=== PATIENT | female | born 1935 | race Caucasian/White ===

== ENCOUNTER → 2023-06-07 | Outpatient (CLI) | payer MEDICARE, SELFPAY ==
[2023-06-07 12:00] LABS: Hematocrit 38.8 % (37-47); Hemoglobin 12.3 g/dL (12.0-15.0); Mean Corp Hgb Conc 31.7 g/dL (32-36); Mean Corpuscular Hgb 32.5 pg (27.0-32.0); Mean Corpuscular Volume 102.4 fL (81-99); Mean Platelet Vol. 11.9 fl (6.2-12.0); Platelet Count 163 K/mm3 (150-450); RBC Distribution Width CV 12.9 % (11.6-14.6); RBC Distribution Width SD 49.1 fl (35.1-43.9); Red Blood Count 3.79 M/mm3 (4.2-5.4); White Blood Count 5.3 K/mm3 (4.4-11.0)
[2023-06-07 12:39] LABS: ALB/GLOB Ratio 1.1 RATIO (0.9-2.4); AST(SGOT) 29 U/L (15-37); Alanine Aminotransfer ALT/SGPT 19 U/L (13-56); Albumin, Serum 3.7 g/dL (3.2-5.0); Alkaline Phosphatase 58 U/L (45-117); Anion Gap 6 (5-15); BUN 16 mg/dL (7-18); BUN/Creat Ratio 19.1 RATIO (10-20); Calcium,Total 9.5 mg/dL (8.5-10.1); Chloride 106 mmol/L (98-107); Creatinine, Serum 0.84 mg/dL (0.55-1.02); EST Glomerular Filtration Rate 69 mL/min (>60); Est Glom Filt Rate - Afr Amer 83 mL/min (>60); Globulin 3.5 g/dL (2.2-4.2); Glucose 90 mg/dL (74-106); Potassium 3.8 mmol/L (3.5-5.1); Protein, Total 7.2 g/dL (6.4-8.2); Sodium Level 137 mmol/L (136-145)
== END | disposition home or self-care (01) ==
PROVIDERS: PCP Family Medicine; Referring Provider Internal Medicine Cardiovascular Disease; Visit Provider Internal Medicine Cardiovascular Disease
DX: R07.9 Chest pain, unspecified (principal); R55 Syncope and collapse
CPT/HCPCS: 36415; 80053; 85027

== ENCOUNTER → 2023-06-14 | Outpatient (CLI) | payer MEDICARE, SELFPAY ==
--- NOTE | 2023-06-14 08:58 | ECHOD_ITS ---
Reason For Study: Syncope Procedure This was a 2D Doppler, Color Flow transthoracic echocardiogram. Exam performed in department. Left Ventricle Normal LV size. Left ventricular systolic function is normal. The estimated ejection fraction is 60 %. Normal diastology for age. No regional wall motion abnormalities noted. Right Ventricle Normal RV size. Normal systolic function. Atria The left and right atria are normal. Mitral Valve Moderate mitral annular calcification extending onto the anterior leaflet. There is no mitral valve stenosis. Mild (1+) mitral valve insufficiency. Tricuspid Valve Normal tricuspid valve. Trivial tricuspid valve insufficiency. Right ventricular systolic pressure estimated to be 22 mmHg. Aortic Valve Trisinus/trileaflet aortic valve. There is no aortic stenosis. Trivial aortic valve insufficiency. Pulmonic Valve The pulmonic valve is not well visualized. Great Vessels Normal aortic root. Pericardium/Pleural No pericardial effusion. MMode/2D Measurements & Calculations LVIDd: 3.6 cm IVSd: 0.82 cm Ao root diam: 3.0 cm LVIDs: 2.2 cm LVPWd: 0.90 cm RVDd: 2.9 cm FS: 37.8 % LAV(MOD-bp): 32.0 ml LVAd ap4: 19.2 cm2 LVAd ap2: 16.5 cm2 LAV(MOD-bp) Indexed: 21.4 ml/m2 LVLd ap4: 6.8 cm LVLd ap2: 6.6 cm LAV(MOD-sp2): 33.0 ml EDV(MOD-sp4): 44.9 ml EDV(MOD-sp2): 35.4 ml LAV(MOD-sp4): 29.3 ml EDV(sp4-el): 46.1 ml EDV(sp2-el): 35.3 ml LVAs ap4: 10.3 cm2 LVAs ap2: 9.9 cm2 LVLs ap4: 5.4 cm LVLs ap2: 5.7 cm ESV(MOD-sp4): 16.2 ml ESV(MOD-sp2): 15.2 ml ESV(sp4-el): 16.8 ml ESV(sp2-el): 14.6 ml EF(MOD-sp4): 64.0 % EF(MOD-sp2): 57.0 % EF(sp4-el): 63.6 % SV(MOD-sp4): 28.7 ml SV(MOD-sp2): 20.2 ml SV(sp4-el): 29.3 ml LA dimension(2D): 2.7 cm LA A4 area: 13.9 cm2 RA A4 area: 10.8 cm2 TAPSE: 2.4 cm Time Measurements MV dec time: 0.18 sec Doppler Measurements & Calculations MV E max rod: 89.4 cm/sec Lat Peak E' Rod: 8.7 cm/sec Med Peak E' Rod: 8.3 cm/sec MV A max rod: 89.4 cm/sec E/E' lat: 10.3 E/E' med: 10.8 MV E/A: 1.0 MV dec slope: 497.8 cm/sec2 Ao V2 max: 105.1 cm/sec LV V1 max: 81.1 cm/sec Ao max P.4 mmHg LV V1 max P.6 mmHg Ao V2 mean: 70.4 cm/sec LV V1 mean P.4 mmHg Ao mean P.3 mmHg LV V1 mean: 55.1 cm/sec Ao V2 VTI: 27.9 cm LV V1 VTI: 20.8 cm AV (velocity ratio): 0.75 PA V2 max: 60.5 cm/sec TR max rod: 217.1 cm/sec TR max P.8 mmHg ECHO/Echo Complete Interpretation Summary The estimated ejection fraction is 60 %. Moderate mitral annular calcification extending onto the anterior leaflet. Mild (1+) mitral valve insufficiency. Trivial tricuspid valve insufficiency. Ordering Physician: Oral Teran Referring Physician: Jaqueline Mitchell M.D. Performed By: Lor Arteaga RDCS
--- NOTE | 2023-06-14 08:58 | CDU_ITS ---
Reason For Study: syncope and collapse Rt. Velocities/BP Lt. Velocities/BP Prox CCA 61.7/12.6 cm/sec. Prox CCA 67.4/14.5 cm/sec. Mid CCA 57.9/14.5 cm/sec. Mid CCA 77.8/19.2 cm/sec. Dist CCA 55.1/9.7 cm/sec. Dist CCA 70.2/18.2 cm/sec. Prox ICA 46.6/12.6 cm/sec. Prox ICA 43.7/9.7 cm/sec. Mid ICA 68.3/19.2 cm/sec. Mid ICA 64.5/19.2 cm/sec. Dist ICA 67.4/20.1 cm/sec. Dist ICA 55.1/20.1 cm/sec. Rt. ICA/CCA = 1.2. Lt. ICA/CCA = .8. Prox ECA 57.9/6.0 cm/sec. Prox ECA 47.5/6.0 cm/sec. Rt. Vert. 46.6/15.4 cm/sec. Lt. Vert. 67.4/12.6 cm/sec. Right Extracranial There is intimal thickening but no significant atherosclerotic plaque noted in the right common carotid artery. There is intimal thickening but no significant atherosclerotic plaque noted in the right internal carotid artery. There is homogeneous, smooth atherosclerotic plaque noted in the right external carotid artery. Antegrade flow is noted in the right vertebral artery. Left Extracranial There is intimal thickening but no significant atherosclerotic plaque noted in the left common carotid artery. There is intimal thickening but no significant atherosclerotic plaque noted in the left internal carotid artery. There is intimal thickening but no significant atherosclerotic plaque noted in the left external carotid artery. Antegrade flow is noted in the left vertebral artery. Procedure Carotid Duplex 85290. This is a Carotid Duplex examination using B-mode, color flow and specral Doppler. The exam was diagnostic. Exam performed in department. VL/Carotid Duplex Ultrasound Interpretation Summary Normal right extracranial internal carotid. Normal left extracranial internal carotid. Patent and antegrade vertebrals bilaterally. Ordering Physician: Oral Teran Performed By: Beny Green RVT
== END | disposition home or self-care (01) ==
LOC: CVS 08:55
PROVIDERS: PCP Family Medicine; Referring Provider Internal Medicine Cardiovascular Disease; Visit Provider Internal Medicine Cardiovascular Disease
DX: R07.9 Chest pain, unspecified (principal); R55 Syncope and collapse
CPT/HCPCS: 93306; 93880

== ENCOUNTER → 2023-06-21 | Outpatient (CLI) | payer MEDICARE, SELFPAY ==
--- NOTE | 2023-06-25 16:12 | STRESSREP_ITS ---
Stress Test Report Exercise myocardial perfusion stress test. 87-year-old woman with a history of syncope Stress protocol: Resting EKG demonstrates normal sinus rhythm with a rate of 65 bpm resting blood pressure is 102/68 mmHg. The patient exercised according to the regular [facility]on protocol for a total duration of 3 minutes attaining a maximum heart rate of 146 bpm which was 108% of maximum predicted heart rate; the maximum workload was 4.6 metabolic equivalents. At rest there were no ST or T wave changes noted to suggest ischemia and at peak exercise upsloping ST changes only were noted which did not meet the criteria for ischemia. No clinical angina was noted the test was terminated due to the target heart rate being achieved/fatigue. The peak bl ood pressure was 138/58 mmHg. Rate-pressure product was 18,900. Myocardial perfusion protocol. 11.3 mCi of technetium 99m sestamibi was injected at rest. The patient exercised according to regular Javon protocol for total duration of 3 minutes and at peak exercise 32.6 mCi of technetium 99m sestamibi was injected stress images were obtained stress and rest images were reconstructed in comparing the short axis vertical long and horizontal long axis. Gated images were also obtained. Perfusion SPECT analysis: Review of the stress images demonstrate normal uptake of tracer noted in all areas of the myocardium. The resting images similarly demonstrate normal uptake of tracer noted in all areas of the myocardium. No areas of reversibility are noted to suggest ischemia no previous infarct was noted. Gated SPECT analysis: The gated ejection fraction is 86%. Conclusion: Normal exercise myocardial perfusion stress test at a low workload Preserved ejection fraction. The low workload may affect sensitivity for detection of ischemia.
== END | disposition home or self-care (01) ==
PROVIDERS: PCP Family Medicine; Referring Provider Internal Medicine Cardiovascular Disease; Visit Provider Internal Medicine Cardiovascular Disease
DX: R55 Syncope and collapse (principal); R07.9 Chest pain, unspecified
CPT/HCPCS: 78452; 93017; A9500; A4216

== ENCOUNTER → 2023-06-28 | Outpatient (CLI) | payer MEDICARE, SELFPAY ==
--- NOTE | 2023-06-28 13:22 | CT_ITS ---
STUDY: CT BRAIN WITH AND WITHOUT CONTRAST REASON FOR EXAM: Female, 87 years old. Syncope and collapse RADIATION DOSAGE (If Supplied By Facility): CTDIvol = ( 47.06 ) mGy, DLP = ( 1674.78 ) mGycm TECHNIQUE: Transaxial CT imaging of the brain was performed pre and post contrast administration. The examination was performed with intravenous administration of IV 50mL Isovue-370. Individualized dose optimization techniques were used for this CT. COMPARISON: None. FINDINGS: Normal soft tissue structures. Normal calvarium. There is mild cerebral atrophy with widening of the extra-axial spaces and ventricular dilatation. There are areas of decreased attenuation within the white matter tracts of the supratentorial brain, consistent with microvascular disease changes. Normal basal ganglia and thalami. Normal brainstem. Normal cerebellum. There is no intracranial hemorrhage. There are no findings of an acute ischemic infarction. Normal visualized paranasal sinuses. CT/Brain/Head W/WO Contrast IMPRESSION: Chronic involutional changes of the brain. Electronically Signed: Francis Velazquez MD at 15:39 EDT ,
== END | disposition home or self-care (01) ==
PROVIDERS: PCP Family Medicine; Referring Provider Internal Medicine Cardiovascular Disease; Visit Provider Internal Medicine Cardiovascular Disease
DX: R55 Syncope and collapse (principal); R07.9 Chest pain, unspecified
CPT/HCPCS: 70470; Q9967

== ENCOUNTER → 2023-10-04 | Outpatient (CLI) | payer MEDICARE, SELFPAY ==
[2023-10-04 12:34] LABS: Cholesterol 281 mg/dL (200); High Density Lipoprotein 90 mg/dL; Magnesium 2.5 mg/dL (1.6-2.6); Triglycerides 64 mg/dL; Very Low Density Lipoprotein 13 mg/dL (5-40)
[2023-10-08 11:08] LABS: Vitamin D 1,25-Dihydroxy 37.2 pg/mL (24.8-81.5)
== END | disposition home or self-care (01) ==
LOC: MTLAB 10:00
PROVIDERS: PCP Family Medicine; Referring Provider Psychiatry & Neurology Neurology; Visit Provider Psychiatry & Neurology Neurology
DX: R00.0 Tachycardia, unspecified (principal); R55 Syncope and collapse; E78.5 Hyperlipidemia, unspecified; E55.9 Vitamin D deficiency, unspecified
CPT/HCPCS: 36415; 80061; 82652; 83735; 84443

== ENCOUNTER → 2023-10-16 | Outpatient (CLI) | payer MEDICARE, SELFPAY | END | disposition home or self-care (01) | PROVIDERS: PCP Family Medicine; Referring Provider Psychiatry & Neurology Neurology; Visit Provider Psychiatry & Neurology Neurology | DX: R55 Syncope and collapse (principal) | CPT/HCPCS: 95819 ==

== ENCOUNTER → 2023-11-14 | Outpatient (CLI) | payer MEDICARE, SELFPAY ==
[2023-11-14 09:34] LABS: Hematocrit 37.2 % (37-47); Hemoglobin 11.7 g/dL (12.0-15.0); Mean Corp Hgb Conc 31.5 g/dL (32-36); Mean Corpuscular Hgb 30.6 pg (27.0-32.0); Mean Corpuscular Volume 97.4 fL (81-99); Mean Platelet Vol. 10.8 fl (6.2-12.0); Platelet Count 195 K/mm3 (150-450); RBC Distribution Width CV 13.2 % (11.6-14.6); RBC Distribution Width SD 46.8 fl (35.1-43.9); Red Blood Count 3.82 M/mm3 (4.2-5.4)
[2023-11-14 09:37] LABS: Anion Gap 1 (5-15); BUN 21 mg/dL (7-18); BUN/Creat Ratio 25.2 RATIO (10-20); Calcium,Total 9.2 mg/dL (8.5-10.1); Chloride 110 mmol/L (98-107); Creatinine, Serum 0.83 mg/dL (0.55-1.02); EST Glomerular Filtration Rate 69 mL/min (>60); Est Glom Filt Rate - Afr Amer 83 mL/min (>60); Glucose 96 mg/dL (74-106); Potassium 4.1 mmol/L (3.5-5.1); Sodium Level 141 mmol/L (136-145)
--- NOTE | 2023-11-14 18:18 | PCM.TILTTABL ---
Staff Staff: Jami Yuan and Sarah Johnson Summary Pre Test Resting HR: 77 Pre Test Resting BP: 92/55 Minimum Test HR: 75 Maximum Test HR: 127 Minimum Test BP: 52/30 Maximum Test BP: 112/55 Reason for Test Termination: Syncope Physician Tilt Table Report Patient's Physicians Primary Care Physician: Jaqueline Mitchell Indications/Diagnosis: Syncope Procedure Comments: Patient was brought to the noninvasive lab in the postabsorptive nonsedated state. Informed consent was obtained. Initial EKG was obtained which demonstrated sinus rhythm with a rate of 77 bpm initial blood pressure was 92/55 mmHg. The patient was then put in the 70 degree head upright tilt position. Continuous EKG monitoring was performed. The patient maintained an adequate heart rate between 83 bpm and 92 bpm. Blood pressures ranged between 95 to millimeters of mercury systolic and 109 mmHg systolic. After the requisite. The patient was then put back in the supine position and administered 0.4 mg of sublingual nitroglycerin. Patient was then put in the head upright tilt position. Initial heart rate was 97 bpm with a blood pressure of 102/62 mmHg. The heart rate then went up to 127 bpm with blood pressure dropping to 93/49 and then subsequently patient became clammy and responsive drop blood pressure to 52 mmHg with heart rate slowly declining from 101 bpm to approximately 87 bpm in sinus rhythm and then sinus bradycardia. Patient was put back in the recumbent position given IV fluids and patient recovered. Summary: Tilt table test with mixed response likely orthostatic hypotension followed by vagal component.
[2023-11-14 18:24] VITALS: BP 112/55; BP 52/30; BP 92/55
== END | disposition home or self-care (01) ==
PROVIDERS: Internal Medicine Cardiovascular Disease; PCP Family Medicine; Visit Provider Internal Medicine Cardiovascular Disease
DX: R55 Syncope and collapse (principal); I48.91 Unspecified atrial fibrillation; I48.92 Unspecified atrial flutter; G90.A Postural orthostatic tachycardia syndrome [POTS]; I45.5 Other specified heart block; R00.0 Tachycardia, unspecified
CPT/HCPCS: 36415; 80048; 85027; 93225; 93226; 93660; J7040; A4216

== ENCOUNTER → 2024-07-29 | Outpatient (CLI) | payer MEDICARE, SELFPAY ==
[2024-07-29 11:37] LABS: AST(SGOT) 27 U/L (15-37); Alanine Aminotransfer ALT/SGPT 18 U/L (13-56); Albumin, Serum 3.6 g/dL (3.2-5.0); Alkaline Phosphatase 45 U/L (45-117); Bilirubin, Direct 0.14 mg/dL (0.00-0.30); Cholesterol 171 mg/dL (200); Globulin 3.1 g/dL (2.2-4.2); High Density Lipoprotein 84 mg/dL; Protein, Total 6.7 g/dL (6.4-8.2); Triglycerides 41 mg/dL; Very Low Density Lipoprotein 8 mg/dL (5-40)
== END | disposition home or self-care (01) ==
LOC: MFPLAB 09:03
PROVIDERS: PCP Family Medicine; Visit Provider Psychiatry & Neurology Neurology
DX: E78.5 Hyperlipidemia, unspecified (principal); R07.9 Chest pain, unspecified
CPT/HCPCS: 36415; 80061; 80076

== ENCOUNTER → 2025-05-07 | Outpatient (CLI) | payer MEDICARE, SELFPAY ==
[2025-05-07 10:45] LABS: Hematocrit 35.3 % (37-47); Hemoglobin 11.5 g/dL (12.0-15.0); Mean Corp Hgb Conc 32.6 g/dL (32-36); Mean Corpuscular Hgb 31.4 pg (27.0-32.0); Mean Corpuscular Volume 96.4 fL (81-99); Mean Platelet Vol. 12.3 fl (6.2-12.0); Platelet Count 179 K/mm3 (150-450); RBC Distribution Width CV 12.9 % (11.6-14.6); RBC Distribution Width SD 45.9 fl (35.1-43.9); Red Blood Count 3.66 M/mm3 (4.2-5.4); White Blood Count 4.9 K/mm3 (4.4-11.0)
[2025-05-07 11:12] LABS: ALB/GLOB Ratio 1.6 RATIO (0.9-2.4); AST(SGOT) 28 U/L (<=31); Alanine Aminotransfer ALT/SGPT 13 U/L (<=34); Albumin, Serum 4.2 g/dL (3.4-4.8); Alkaline Phosphatase 49 U/L (35-104); Anion Gap 10 (5-15); BUN 20 mg/dL (4-19); BUN/Creat Ratio 24.2 RATIO (10-20); Calcium,Total 9.4 mg/dL (7.6-11.0); Carbon Dioxide 25.8 mmol/L (21.0-32.0); Chloride 105 mmol/L (98-108); Cholesterol 224 mg/dL (<=200); Creatinine, Serum 0.84 mg/dL (0.70-1.20); EST Glomerular Filtration Rate 67 (>60); Globulin 2.6 g/dL (2.2-4.2); Glucose 98 mg/dL (70-99); High Density Lipoprotein 93 mg/dL; Low Density Lipoprotein Calc. 122 mg/dL; Potassium 4.1 mmol/L (3.3-5.1); Protein, Total 6.7 g/dL (5.9-8.4); Sodium Level 141 mmol/L (133-145); Total Bilirubin 0.31 mg/dL (0.00-1.30); Triglycerides 45 mg/dL; Very Low Density Lipoprotein 9 mg/dL (5-40); cholesterol:hdl ratio screen 2.41
--- OUTSIDE RECORDS SUMMARY | 2025-05-07 16:08 | XMS RPT_ITS | CCD ---
Author Organization [facility] Care Team Providers Care Client Services Analyst Name Role Phone Dr. Jaqueline Mitchell Primary Care Provider Dr. Jaqueline Mitchell Referring Provider Jeffry, Dr. Mixon Attending Provider Dr. Juan C Betts Attending Provider Jeffry, Dr. Mixon Referring Provider Xavi SIFUENTES, JAVIER Conroy Attending Provider Jeffry, Dr. Mixon Other Provider Dr. Julio C Driver Attending Provider [phone] Jaqueline Mitchell Primary Care Provider Jeffry, Dr. Mixon Referring Provider Dr. Oral Teran Other Provider Dr. Julio C Driver Attending Provider [phone] Jaqueline Mitchell Referring Provider Jeffry, Dr. Mixon Attending Provider Dr. Regis Butler Attending Provider Dr. Jaqueline Mitchell Primary Care Provider Dr. Julio C Driver Attending Provider [phone] Julio C Driver Other Provider Jeffry, Dr. Mixon Other Provider Regis Butler Attending Unavailable Regis Butler Referring Unavailable Jaqueline Mitchell Primary Care Unavailable Regis Butler Attending Unavailable Jolliff, Jaqueline S Primary Care Unavailable Baddour, Regis Referring Unavailable Baddour, Regis Attending Unavailable Jolliff, Jaqueline S Primary Care Unavailable Baddour, Regis Attending Unavailable Baddour, Regis Referring Unavailable Jolliff, Jaqueline S Primary Care Unavailable Jeffry, Oral Consulting Unavailable Jolliff, Jaqueline S Primary Care Unavailable Neisha, Julio C Attending Unavailable Jolliff, Jaqueline S Primary Care Unavailable Jolliff, Jaqueline S Referring Unavailable Marycarmen Hurley Attending Unavailable Baddour, Regis Referring Unavailable Jeffry, Oral Attending Unavailable Jolliff, Jaqueline S Primary Care Unavailable Jeffry, Oral Consulting Unavailable Jolliff, Jaqueline S Primary Care Unavailable Neisha, Dickson Attending Unavailable Neisha, Julio C Consulting Unavailable Baddour, Regis Attending Unavailable Jolliff, Jaqueline S Referring Unavailable Jolliff, Jaqueline S Primary Care Unavailable Baddour, Regis Attending Unavailable Jolliff, Jaqueline S Primary Care Unavailable Jolliff, Jaqueline S Referring Unavailable Baddour, Regis Attending Unavailable Baddour, Regis Referring Unavailable Jolliff, Jaqueline S Primary Care Unavailable Baddour, Regis Attending Unavailable Jolliff, Jaqueline S Primary Care Unavailable Jolliff, Jaqueline S Referring Unavailable Baddour, Regis Attending Unavailable Jolliff, Jaqueline S Primary Care Unavailable Jolliff, Jaqueline S Referring Unavailable Jeffry, Oral Attending Unavailable Jolliff, Jaqueline S Referring Unavailable Jolliff, Jaqueline S Primary Care Unavailable Ciciiff Dr. Jaqueline KEEN Primary Care Provider Dr. Jaqueline Mitchell MD Referring Provider [phone] Dr. Regis Butler MD Attending Provider Medications Current Medications Medication Drug Class(es) Dates Sig (Normalized) Sig (Original) atorvastatin 20 mg oral tablet (3 sources) HMG-CoA Reductase Inhibitor Start: 02-04-2024 End: 05-07-2025 take 1 tablet by mouth once daily Atorvastatin 20 mg tablet Active 20 mg PO DAILY 90 May 07, 2025 8:51am fludrocortisone acetate 0.1 mg oral tablet (5 sources) Start: 12-18-2023 End: 05-07-2025 take 1 tablet by mouth in the morning Fludrocortisone 0.1 mg tablet Active 0.1 mg .ROUTE .COMPLEX 60 May 07, 2025 8:51am Take 1 tablet orally in the morning 4 days/week (Sunday, Sunday, Sunday, and Sunday). Start: 12-03-2023 End: 12-18-2023 take 1 tablet by mouth in the morning Fludrocortisone 0.1 mg tablet Discontinued 0.1 mg .ROUTE .COMPLEX 15 December 03, 2023 1:00am December 18, 2023 8:54pm Take 1 tablet orally in the morning 3 days/week (Sunday, Sunday, and Sunday). Drifting 6-Flz-Uwh-Fish Oil (Fi sh Oil) 900-1,400 mg capsule,delayed release(DR/EC) (5 sources) Start: 06-06-2023 Drifting 3-Dha-Ep a-Fish Oil (Fish Oil) 900-1,400 mg capsule,delayed release(DR/EC) Active 1 NMA PO DAILY June 06, 2023 12:00am Start: 06-06-2023 take 900-1400 mg by mouth once daily Drifting 1-Zgg-Amb-Fish Oil (Fish Oil) 900-1,400 mg capsule,delayed release(DR/EC) Active 1 CAP PO DAILY June 05, 2023 11:00pm Start: 06-06-2023 take 900-1400 mg by mouth once daily Drifting 8-Fmj-Kev-Fish Oil (Fish Oil) 900-1,400 mg capsule,delayed release(DR/EC) Active 1 CAP PO DAILY June 06, 2023 12:00am Completed/Discontinued Medications Medication Drug Class(es) Dates Sig (Normalized) Sig (Original) acetaminophen 325 mg / oxyCODONE hydrochloride 5 mg oral tablet (5 sources) Opioid Agonist Start: 12-13-2014 End: 06-06-2023 Oxycodone-Acetamino phen 1 TABLET tablet Discontinued 1 - 2 {tbl} PO EVERY 4 HOURS NEEDED as needed for Pain December 13, 2014 1:00am June 06, 2023 7:09pm Start: 12-13-2014 End: 06-06-2023 take 1 tablet by mouth every four hours as needed Oxycodone-Acetaminophen Discontinued 1 - 2 TABLET PO EVERY 4 HOURS NEEDED December 13, 2014 12:00am June 06, 2023 6:09pm 24 hr metoprolol succinate 25 mg extended release oral tablet (2 sources) beta-Adrenergic Girish Start: 11-07-2023 End: 11-12-2023 take 1 tablet by mouth once daily Metoprolol Succinate 25 mg tablet extended release 24 hr Discontinued 25 mg PO DAILY November 07, 2023 1:00am November 12, 2023 10:31am Problems Active Problems Problem Classification Problem Date Documented Da te Episodic/Chronic Cardiac dysrhythmias (10 sources) Postural orthostatic tachycardia syndrome ; Translations: [Postural orthostatic tachycardia syndrome] Onset: 11-28-2023 10-05-2023 Chronic Cardiac dysrhythmias (5 sources) Tachycardia; Translations: [Tachycardia, unspecified] Onset: 10-09-2023 10-05-2023 Episodic Conduction disorders (2 sources) Sinus node dysfunction; Translations: [Other specified heart block] Onset: 11-28-2023 11-12-2023 Chronic Disorders of lipid metabolism (5 sources) Hyperlipidemia; Translations: [Hyperlipidemia, unspecified] Onset: 08-18-2024 10-04-2023 Chronic Heart valve disorders (5 sources) Mitral valve regurgitation; Translations: [Nonrheumatic mitral (valve) insufficiency] 08-29-2023 Chronic Nonspecific chest pain (6 sources) Chest pain; Translations: [Chest pain, unspecified] Onset: 02-04-2024 06-06-2023 Episodic Nutritional deficiencies (6 sources) Vitamin D deficiency; Translations: [Vitamin D deficiency, unspecified] Onset: 10-04-2023 10-04-2023 Chronic Other circulatory disease (2 sources) Orthostatic hypotension; Translations: [Orthostatic hypotension] 08-07-2024 Episodic Syncope (14 sources) Syncope and collapse; Translations: [Syncope and collapse] Onset: 11-28-2023 06-07-2023 Episodic Past or Other Problems Problem Classification Problem Date Documented Da te Episodic/Chronic Other circulatory disease (2 sources) Postural orthostatic tachycardia syndrome ; Translations: [Postural orthostatic tachycardia syndrome [POTS]] Onset: 11-28-2023 Episodic Results Test Name Value Interpretation Reference Range Facility Neurology Visit Reporton Neurology Visit Report [facility] [address] [place] [address], [address] [place] [address] OFFICE VISIT Date of Service: 08/07/24 MR#: [id number] Acct: [id number] Name: LEONORA BAEZ Rep #: [id number] : 1935 Provider: Dr. Regis baugh MD Age/Sex: 88/F Location: [facility] Status: Signed HPI HPI Details: Interim History: Leonora returns for follow-up visit. She has a history of polycystic kidney disease. Around January 2023, after entering her car and beginning to drive she had an episode of acute loss of consciousness that lasted several seconds. She did not have any preceding numbness, weakness, vision change, headache, hearing loss, lightheadedness, dizziness, chest pain or shortness of breath. She did not exhibit any tongue biting or urinary incontinence. Upon regaining consciousness, she was fully awake and alert. She did not seek medical attention at that time. Around March 2023, she had another similar episode of loss of consciousness that occurred while standing. This episode was witnessed. She did not exhibit any limb shaking. Her loss of consciousness lasted several seconds. She was evaluated by her primary care provider following this episode. She had had some vague sinus symptoms at that time for which she was treated. In April 2023, she had a third episode of similar loss of consciousness while walking outside. She fell and struck her face. She did not have any postictal confusion or lethargy, numbness, weakness, vision change, lightheadedness, dizziness, chest pain, or shortness of breath associated with the second and third episodes. She did not have any tongue biting or urinary incontinence with the second or third episodes. She was evaluated by a boiler washer following her third episode. Her evaluation included an EKG, cardiac echo, carotid ultrasound and stress test and no significant pathology to account for her symptoms was identified. A head CT revealed moderate age-related diffuse cerebral atrophy and moderate bilateral periventricular and subcortical white matter chronic small vessel ischemic disease. She previously reported having episodes of positional lightheadedness several times per day however she did not experience lightheadedness at the time of occurrence of any of the syncopal episodes above. A tilt table test was positive for orthostatic hypotension. Fludrocortisone was initiated. She currently takes fludrocortisone 0.1 mg in the morning 4 days/week (Sunday, Sunday, Sunday, Sunday) and has used compression stockings and she has had only 2 momentary episodes of lightheadedness since her last visit in January 2024. She has had no further syncopal episodes other than those described above. Laboratory studies from years past reveal vitamin D insufficiency and hyperlipidemia. Her last vitamin D level was normal. She now takes atorvastatin and is tolerating this well. Her last lipid profile (July 2024) was normal. Physical Exam: Neuro: The patient is awake and alert and responds appropriately; speech is fluent Neck: No bruits Heart: Regular rhythm and rate Supplemental Info Vitamin D, lipid profile (03/31/2014): Vitamin D 28 (insufficiency range), triglycerides 76 (normal), cholesterol 262 (high), LDL 169 (high), VLDL 15 (normal), HDL 78 (normal) CBC, CMP (06/07/2023): MCV 102.4 (high) Carotid ultrasound (06/14/2023): Normal right extracranial internal carotid. Normal left extracranial internal carotid. Patent and antegrade vertebrals bilaterally. Cardiac echo (06/14/2023): The estimated ejection fraction is 60 %. Moderate mitral annular calcification extending onto the anterior leaflet. Mild (1+) mitral valve insufficiency. Trivial tricuspid valve insufficiency. Head CT (06/28/2023): FINDINGS: Normal soft tissue structures. Normal calvarium. There is mild cerebral atrophy with widening of the extra-axial spaces and ventricular dilatation. There are areas of decreased attenuation within the white matter tracts of the supratentorial brain, consistent with microvascular disease changes. Normal basal ganglia and thalami. Normal brainstem. Normal cerebellum. There is no intracranial hemorrhage. There are no findings of an acute ischemic infarction. Normal visualized paranasal sinuses. IMPRESSION: Chronic involutional changes of the brain. These images were reviewed on 10/04/2023. Magnesium, lipid profile, TSH, vitamin D (10/04/2023): Cholesterol 281 (high), LDL 178 (high), triglycerides 64 (normal), VLDL 13 (normal), HDL 90 (normal) EEG (10/16/2023): Description: During the waking recording the posterior rhythm was characterized by well-sustained, well-modulated symmetrical 9 Hz alpha rhythm that attenuated well with eye opening. Low voltage beta activity was seen anteriorly. A mixture of alpha and theta activity was seen in the central and temporal regions bilaterally. Patient drowses with (more content not included)... Normal [facility] Lipid Profileon 07-29-2024 Cholesterol [Mass/Vol] 171 mg/dL Normal 200 [facility] Comment on above: Result Comment: <200 mg/dL Desirable 200-240 mg/dL Borderline >240 mg/dL High Risk Performed By: #### L 500.4100, L500.3400 #### [facility] [address] [place], [address] Cholesterol in HDL [Mass/Vol] 84 mg/dL Normal [facility] Comment on above: Result Comment: The drugs N-Acetylcysteine and Metamizole may falsely depress this assay. Reference Range HDL <40 mg/dL Low HDL Cholesterol HDL >or= 60 mg/dL High HDL Cholesterol Performed By: #### L 500.4100, L500.3400 #### [facility] [address] [place], [address] Cholesterol in LDL [Mass/Vol] 79 mg/dL Normal 0-130 [facility] Comment on above: Performed By: #### L 500.4100, L500.3400 #### [facility] [address] [place], [address] Cholesterol in VLDL [Mass/Vol] 8 mg/dL Normal 5-40 [facility] Comment on above: Performed By: #### L 500.4100, L500.3400 #### [facility] [address] [place], [address] Triglyceride [Mass/Vol] 41 mg/dL Normal [facility] Comment on above: Result Comment: The drugs N-Acetylcysteine and Metamizole may falsely depress this assay. Serum Triglycerides Reference Interval Normal <150 mg/dL Borderline high 150 - 199 mg/dL High 200 - 499 mg/dL Very High > or = 500 mg/dL Performed By: #### L 500.4100, L500.3400 #### [facility] [address] [place], [address] Liver Profileon 07-29-2024 Albumin [Mass/Vol] 3.6 g/dL Normal 3.2-5.0 [facility] Comment on above: Performed By: #### L 500.4100, L500.3400 #### [facility] [address] [place], [address] ALK P 45 U/L Normal 45-117 [facility] Comment on above: Performed By: #### L 500.4100, L500.3400 #### [facility] [address] [place], [address] ALT [Catalytic activity/Vol] 18 U/L Normal 13-56 [facility] Comment on above: Performed By: #### L 500.4100, L500.3400 #### [facility] [address] [place], [address] AST [Catalytic activity/Vol] 27 U/L Normal 15-37 [facility] Comment on above: Performed By: #### L 500.4100, L500.3400 #### [facility] [address] [place], [address] Bilirubin [Mass/Vol] 0.60 mg/dL Normal 0.20-1.00 [facility] Comment on above: Result Comment: For patients on eltrombopag therapy, use of Dimension [place] TBIL is not recommended. Performed By: #### L 500.4100, L500.3400 #### [facility] [address] [place], [address] Bilirubin.direct [Mass/Vol] 0.14 mg/dL Normal 0.00-0.30 [facility] Comment on above: Performed By: #### L 500.4100, L500.3400 #### [facility] [address] [place], [address] Globulin (S) [Mass/Vol] 3.1 g/dL Normal 2.2-4.2 [facility] Comment on above: Performed By: #### L 500.4100, L500.3400 #### [facility] [address] [place], [place], [address] T PROT 6.7 g/dL Normal 6.4-8.2 [facility] Comment on above: Performed By: #### L 500.4100, L500.3400 #### [facility] [address] [place], [place], [address] Neurology Visit Reporton Neurology Visit Report [facility] [address] [facility] [address] [facility], [address] [place], [place] [address] OFFICE VISIT Date of Service: 02/04/24 MR#: [id number] Acct: [id number] Name: LEONORA BAEZ Rep #: [id number] : 1935 Provider: Dr. Regis baugh MD Age/Sex: 88/F Location: [facility] Status: Signed Intake Vital Signs 10/04/23 08:59 01/08/24 08:15 02/04/24 08:19 02/04/24 09:29 02/04/24 09:30 Height 5 ft 2 in 52 ft Weight: 114 lb 8 oz BP 120/70 110/60 98/60 Blood Pressure Location Lt brachial Lt brachial Lt brachial Position Sitting Sitting Standing Respiration 14 Pulse 87 77 83 Pulse Source Monitor Temp 97.8 F Temp Source Temporal Pulse Oximetry (%) 97 Oxygen Delivery Method room air Intake Visit Reasons: 4 M FU Accompanied by: Self Allergies No Known Allergies Allergy (Verified 02/04/24 08:20) [facility] Medical History (Updated 02/04/24 @ 09:[address] Regis Butler MD) Chest pain Polycystic kidney disease Syncope and collapse Surgical History Hx of cataract removal with insertion of prosthetic lens Hx of dilation and curettage Family History Father CVA (cerebral vascular accident) Mother Dementia Daughter Kidney disease Social History (Updated 08/29/23 @ 13:13 by Sary Benitez RN) Smoking Status: Never smoker alcohol intake: never substance use type: does not use caffeine: Yes Type: coffee Number of servings: 2 HPI HPI Details: Interim History: Leonora returns for follow-up visit. She has a history of polycystic kidney disease. Around January 2023, after entering her car and beginning to drive she had an episode of acute loss of consciousness that lasted several seconds. She did not have any preceding numbness, weakness, vision change, headache, hearing loss, lightheadedness, dizziness, chest pain or shortness of breath. She did not exhibit any tongue biting or urinary incontinence. Upon regaining consciousness, she was fully awake and alert. She did not seek medical attention at that time. Around March 2023, she had another similar episode of loss of consciousness that occurred while standing. This episode was witnessed. She did not exhibit any limb shaking. Her loss of consciousness lasted several seconds. She was evaluated by her primary care provider following this episode. She had had some vague sinus symptoms at that time for which she was treated. In April 2023, she had a third episode of similar loss of consciousness while walking outside. She fell and struck her face. She did not have any postictal confusion or lethargy, numbness, weakness, vision change, lightheadedness, dizziness, chest pain, or shortness of breath associated with the second and third episodes. She did not have any tongue biting or urinary incontinence with the second or third episodes. She was evaluated by a boiler washer following her third episode. Her evaluation included an EKG, cardiac echo, carotid ultrasound and stress test and no significant pathology to account for her symptoms was identified. A head CT with and without contrast revealed moderate age-related diffuse cerebral atrophy and moderate bilateral periventricular and subcortical white matter chronic small vessel ischemic disease. She reported having episodes of positional lightheadedness several times per day however she did not experience lightheadedness at the time of occurrence of any of the syncopal episodes above. A tilt table test was positive for orthostatic hypotension. The patient was prescribed fludrocortisone. She currently takes fludrocortisone 0.1 mg in the morning 4 days/week (Sunday, Sunday, Sunday, Sunday) and uses compression stockings and her lightheadedness has resolved. She has had no further syncopal episodes than those described above. She does not have any history of LAMP WIRER infection, concussion or significant history. Laboratory studies from years past reveal vitamin D insufficiency and hyperlipidemia. Her last vitamin D level was normal. Physical Exam: Neuro: The patient is awake and alert and responds appropriately; speech is fluent Neck: No bruits Heart: Regular rhythm and rate Supplemental Info Vitamin D, lipid profile (03/31/2014): Vitamin D 28 (insufficiency range), triglycerides 76 (normal), cholesterol 262 (high), LDL 169 (high), VLDL 15 (normal), HDL 78 (normal) CBC, CMP (06/07/2023): MCV 102.4 (high) Carotid ultrasound (06/14/2023): Normal right extracranial internal carotid. Normal left extracranial internal carotid. Patent and antegrade vertebrals bilaterally. Cardiac echo (06/14/2023): The estimated ejection fraction is 60 %. Moderate mitral annular calcification extending onto the anterior leaflet. Mild (1+) mitral valve insufficiency. Trivial (more content not included)... Normal [facility] Office Visit Reporton 2023 Office Visit Report [facility] [address] [address] OFFICE VISIT Date of Service: 01/08/24 MR#: [id number] Acct: [id number] Patient: LEONORA BAEZ Rep #: [id number] : 1935 Provider: Dr. Regis baugh MD Age/Sex: 88/F Location: [facility] Status: Signed Intake Vital Signs 10/04/23 08:59 01/08/24 08:15 01/08/24 08:16 01/08/24 08:17 Height 5 ft 2 in 52 ft Weight: 115 lb 3 oz BMI 0.1 BP 120/80 122/62 H 120/64 Blood Pressure Location Rt brachial Rt brachial Rt brachial Position Supine Sitting Standing Respiration 17 Pulse 69 66 77 Pulse Source Monitor Monitor Monitor Temp 97.8 F Temp Source Temporal Pulse Oximetry (%) 95 Oxygen Delivery Method room air Intake Visit Reasons: orthostatic blood pressure check Allergies No Known Allergies Allergy (Verified 02/04/24 08:20) Nursing Note Orthostatic's taken today: Dr. Butler looked over results, He wants patient to continue her Fludrocortisone 0.1 mg by mouth every Sun-Sun-Sun and Sat. She can resume driving but ONLY in the daylight, for short trips, only in familiar areas and when she is not tired. Patient understood orders, she repeated the orders for driving and medication days. Patient is scheduled for her next office visit on February 04, 2024. Quality Reporting Tobacco Screening ([facility] 138) Smoking Status: Never smoker Assessment and Plan Assessment and Plan (1) Postural orthostatic tachycardia syndrome: Status: Acute 02/04/24 0904 Date Regis Butler MD [facility] Signature: Date (if applicable) CC: Normal [facility] Office Visit Reporton 2023 Office Visit Report [facility] [address] [place] [address] OFFICE VISIT Date of Service: 12/18/23 MR#: [id number] Acct: [id number] Patient: LEONORA BAEZ Rep #: [id number] : 1935 Provider: Dr. Regis baugh MD Age/Sex: 88/F Location: [facility] Status: Signed with Addenda ADDENDUM by Dr. Regis Butler MD on 02/04/24 at 0859 Addendum Addendum (02/04/2024): The patient's dose of fludrocortisone 0.1 mg was increased to 1 tablet 4 days/week to be taken in the morning (Sunday, Sunday, Sunday, Sunday) on 12/18/2023. 02/04/24 0859 Date Regis Butler MD cc: * Signed Intake Vital Signs 10/04/23 08:59 12/18/23 08:32 12/18/23 08:32 12/18/23 08:33 Height 5 ft 2 in BP 103/66 103/62 98/68 Blood Pressure Location Lt brachial Lt brachial Lt brachial Position Sitting Supine Standing Intake Visit Reasons: ORTHOSTATIC BLOOD PRESSURE Allergies No Known Allergies Allergy (Verified 10/04/23 09:01) 12/18/231956 Date Regis De La Garza Signature: Date (if applicable) CC: Normal [facility] Basic Metabolic Profile (BMP )on 11-14-2023 BUN/CRE 25.2 RATIO High 09-14 [facility] Comment on above: Order Comment: for t ilt table study Performed By: #### L 100.0500, L500.2500 #### [facility] [address] [place], [address] CA,Total 9.2 mg/dL Normal 8.5-10.1 [facility] Comment on above: Order Comment: for t ilt table study Performed By: #### L 100.0500, L500.2500 #### [facility] [address] [place], [address] Chloride [Moles/Vol] 110 mmol/L High 98-107 [facility] Comment on above: Order Comment: for t ilt table study Performed By: #### L 100.0500, L500.2500 #### [facility] [address] [place], [address] CO2 [Moles/Vol] 30.0 mmol/L Normal 21.0-32.0 [facility] Comment on above: Order Comment: for t ilt table study Performed By: #### L 100.0500, L500.2500 #### [facility] [address] [place], [address] Creatinine [Mass/Vol] 0.83 mg/dL Normal 0.55-1.02 [facility] Comment on above: Order Comment: for t ilt table study Result Comment: The validity of the calculated GFR GFRAA in patients over 70 years has not been determined. Clinical correlation is essential. Performed By: #### L 100.0500, L500.2500 #### [facility] [address] [place], [address] EST GFR - AA 83 mL/min Normal >60 [facility] Comment on above: Order Comment: for t ilt table study Result Comment: Afri can [place] GFR Calc Performed By: #### L 100.0500, L500.2500 #### [facility] [address] [place], [address] GAP 1 Low 5-15 [facility] Comment on above: Order Comment: for t ilt table study Performed By: #### L 100.0500, L500.2500 #### [facility] [address] [place], [address] GFR/1.73 sq M.predicted among non-blacks MDRD (S/P/Bld) [Vol rate/Area] 69 mL/min/{1.73_m2} Normal >60 [facility] Comment on above: Order Comment: for t ilt table study Result Comment: Non- GFR Calc Performed By: #### L 100.0500, L500.2500 #### [facility] [address] [place], [address] Glucose [Mass/Vol] 96 mg/dL Normal 74-106 [facility] Comment on above: Order Comment: for t ilt table study Performed By: #### L 100.0500, L500.2500 #### [facility] [address] [place], [address] Potassium [Moles/Vol] 4.1 mmol/L Normal 3.5-5.1 [facility] Comment on above: Order Comment: for t ilt table study Performed By: #### L 100.0500, L500.2500 #### [facility] [address] [place], [address] Sodium [Moles/Vol] 141 mmol/L Normal 136-145 [facility] Comment on above: Order Comment: for t ilt table study Performed By: #### L 100.0500, L500.2500 #### [facility] [address] [place], [address] Urea nitrogen [Mass/Vol] 21 mg/dL High 7-18 [facility] Comment on above: Order Comment: for t gat table study Performed By: #### L 100.0500, L500.2500 #### [facility] [address] [place], [address] Basophil percentageOrdered B y: Oral Teran on 11-14-2023 Chloride [Moles/Vol] 110 mmol/L 98-107 [facility] Glucose [Mass/Vol] 96 mg/dL 74-106 [facility] Potassium [Moles/Vol] 4.1 mmol/L 3.5-5.1 [facility] Sodium [Moles/Vol] 141 mmol/L 136-145 [facility] WBC (Bld) [#/Vol] 5.0 10*3/uL 4.4-11.0 [facility] Blood erythrocytes count (nu mber/volume)Ordered By: Oral Teran on 11-14-2023 RBC (Bld) [#/Vol] 3.82 10*6/uL 4.2-5.4 [facility] Blood hemoglobin measurement (mass/volume)Ordered By: Oral Teran on 11-14-2023 Hemoglobin (Bld) [Mass/Vol] 11.7 g/dL 12.0-15.0 [facility] Blood platelet mean volumeOr dered By: Oral Teran on 11-14-2023 Platelet mean volume (Bld) [Entitic vol] 10.8 fL 6.2-12.0 [facility] CBC-Complete Blood Cnt No Di ffon 11-14-2023 Erythrocyte distribution width (RBC) [Ratio] 13.2 % Normal 11.6-14.6 [facility] Comment on above: Performed By: #### L 100.0500, L500.2500 #### [facility] [address] [place], [address] Hematocrit (Bld) [Volume fraction] 37.2 % Normal 37-47 [facility] Comment on above: Performed By: #### L 100.0500, L500.2500 #### [facility] [address] [place], [address] Hemoglobin (Bld) [Mass/Vol] 11.7 g/dL Low 12.0-15.0 [facility] Comment on above: Performed By: #### L 100.0500, L500.2500 #### [facility] [address] [place], [address] MCH (RBC) [Entitic mass] 30.6 pg Normal 27.0-32.0 [facility] Comment on above: Performed By: #### L 100.0500, L500.2500 #### [facility] [address] [place], [address] MCHC (RBC) [Mass/Vol] 31.5 g/dL Low 32-36 [facility] Comment on above: Performed By: #### L 100.0500, L500.2500 #### [facility] [address] [place], [address] MCV (RBC) [Entitic vol] 97.4 fL Normal 81-99 [facility] Comment on above: Performed By: #### L 100.0500, L500.2500 #### [facility] [address] [place], [address] Platelet mean volume (Bld) [Entitic vol] 10.8 fL Normal 6.2-12.0 [facility] Comment on above: Performed By: #### L 100.0500, L500.2500 #### [facility] [address] [place], [address] Platelets (Bld) [#/Vol] 195 10*3/uL Normal 150-450 [facility] Comment on above: Performed By: #### L 100.0500, L500.2500 #### [facility] [address] [place], [address] RBC (Bld) [#/Vol] 3.82 10*6/uL Low 4.2-5.4 [facility] Comment on above: Performed By: #### L 100.0500, L500.2500 #### [facility] [address] [place], [address] RDW SD 46.8 fl High 35.1-43.9 [facility] Comment on above: Performed By: #### L 100.0500, L500.2500 #### [facility] [address] [place], [address] WBC (Bld) [#/Vol] 5.0 10*3/uL Normal 4.4-11.0 [facility] Comment on above: Performed By: #### L 100.0500, L500.2500 #### [facility] [address] [place], [address] Determination of erythrocyte mean corpuscular volume (MCV)Ordered By: Oral Teran on 11-14-2023 MCV (RBC) [Entitic vol] 97.4 fL 81-99 [facility] Hematocrit Auto (Bld) [Volum e fraction]Ordered By: Oral Teran on 11-14-2023 Hematocrit (Bld) [Volume fraction] 37.2 % 37-47 [facility] - Chemistry and C hemistry - challengeOrdered By: Oral Teran on 11-14-2023 CO2 [Moles/Vol] 30.0 mmol/L 21.0-32.0 [facility] Urea nitrogen/Creatinine [Mass ratio] 25.2 mg/mg 09-14 [facility] - Hematology and Cell countsOrdered By: Oral Teran on 11-14-2023 Erythrocyte distribution width (RBC) [Entitic vol] 46.8 fL 35.1-43.9 [facility] Erythrocyte distribution width (RBC) [Ratio] 13.2 % 11.6-14.6 [facility] MCH (RBC) [Entitic mass] 30.6 pg 27.0-32.0 [facility] MCHC Auto (RBC) [Mass/Vol]Or dered By: Oral Teran on 11-14-2023 MCHC (RBC) [Mass/Vol] 31.5 g/dL 32-36 [facility] No Panel InformationOrdered By: Oral Teran on 11-14-2023 Estimated GFR (MDRD) Amer 83 mL/min >60 [facility] Comment on above: GFR Calc Estimated GFR (MDRD) Non-Af Amer 69 mL/min >60 [facility] Comment on above: Non- GFR Calc Platelets bldOrdered By: Marcia Teran on 11-14-2023 Platelets (Bld) [#/Vol] 195 10*3/uL 150-450 [facility] Serum or plasma calcium delma urement (mass/volume)Ordered By: Oral Tearn on 11-14-2023 Calcium [Mass/Vol] 9.2 mg/dL 8.5-10.1 [facility] Serum or plasma creatinine m easurement (mass/volume)Ordered By: Oral Teran on 11-14-2023 Creatinine [Mass/Vol] 0.83 mg/dL 0.55-1.02 [facility] Comment on above: The validity of the calculated GFR & GFRAA in patients over 70 years has not been determined. Clinical correlation is essential. Serum or plasma urea nitroge n measurement (mass/volume)Ordered By: Oral Teran on 11-14-2023 Urea nitrogen [Mass/Vol] 21 mg/dL 7-18 [facility] Thin prep Papanicolaou smear with manual screeningOrdered By: Oral Teran on 11-14-2023 Thin prep Papanicolaou smear with manual screening 1 5-15 [facility] Tilt Tableon 11-14-2023 Tilt Table [facility] [place] [address] 11/14/23 1818 MR#: [id number] Acct: [id number] Name: LEONORA BAEZ Rep #: [id number] : 1935 88 From: Julio C Driver MD Attending Dr: Dr. Julio C Driver MD Status: REG C DEEPA Ordering Dr: Date: 11/14/23 Location: [facility] Sex: F C Admitted: Staff Staff: Jami Yuan and Sarah Johnson Summary Pre Test Resting HR: 77 Pre Test Resting BP: 92/55 Minimum Test HR: 75 Maximum Test HR: 127 Minimum Test BP: 52/30 Maximum Test BP: 112/55 Reason for Test Termination: Syncope Physician Tilt Table Report Patient's Physicians Primary Care Physician: Jaqueline Mitchell Indications/Diagnosi s: Syncope Procedure Comments: Patient was brought to the noninvasive lab in the postabsorptive nonsedated state. Informed consent was obtained. Initial EKG was obtained which demonstrated sinus rhythm with a rate of 77 bpm initial blood pressure was 92/55 mmHg. The patient was then put in the 70 degree head upright tilt position. Continuous EKG monitoring was performed. The patient maintained an adequate heart rate between 83 bpm and 92 bpm. Blood pressures ranged between 95 to millimeters of mercury systolic and 109 mmHg systolic. After the requisite. The patient was then put back in the supine position and administered 0.4 mg of sublingual nitroglycerin. Patient was then put in the head upright tilt position. Initial heart rate was 97 bpm with a blood pressure of 102/62 mmHg. The heart rate then went up to 127 bpm with blood pressure dropping to 93/49 and then subsequently patient became clammy and responsive drop blood pressure to 52 mmHg with heart rate slowly declining from 101 bpm to approximately 87 bpm in sinus rhythm and then sinus bradycardia. Patient was put back in the recumbent position given IV fluids and patient recovered. Summary: Tilt table test with mixed response likely orthostatic hypotension followed by vagal component. 11/14/231823 Date Julio C Driver MD CC: Dr. Jaqueline Mitchell MD; Dr. Julio C Driver MD Date Dictated: 11/14/231817 Date Transcribed: 11/14/231817 [employer]st: [place] Signed Normal [facility] Vitamin D 1,25-Dihydroxyon 1 12-08-2022 VIT D 1,25 DIHY 37.2 pg/mL Normal 24.8-81.5 [facility] Comment on above: Result Comment: Perf ormed at: [facility] - [facility] [address] [id number] Senior Consultant: Mariela Spear MD, Phone: [phone] Performed By: #### L 501.9520, L3300.0960, L500.4100, L501.5200 ####[facility] [address] [place], [address] Basophil percentageOrdered B y: Regis Butler on 10-04-2023 Cholesterol [Mass/Vol] 281 mg/dL <200 [facility] Comment on above: <200 mg/dL Desirable 200-240 mg/dL Borderline >240 mg/dL High Risk Triglyceride [Mass/Vol] 64 mg/dL <199 [facility] Comment on above: The drugs N-Acetylcy steine and Metamizole may falsely depress this assay.Serum Triglycerides Reference Interval Normal <150 mg/dL Borderline high 150 - 199 mg/dL High 200 - 499 mg/dL Very High > or = 500 mg/dL Laboratory - Chemistry and C hemistry - challengeOrdered By: Regis Butler on 10-04-2023 Magnesium [Mass/Vol] 2.5 mg/dL 1.6-2.6 [facility] Lipid Profileon 10-04-2023 Cholesterol [Mass/Vol] 281 mg/dL High 200 [facility] Comment on above: Result Comment: <200 mg/dL Desirable 200-240 mg/dL Borderline >240 mg/dL High Risk Performed By: #### L 501.9520, L3300.0960, L500.4100, L501.5200 #### [facility] [address] [place], [address] Cholesterol in HDL [Mass/Vol] 90 mg/dL Normal [facility] Comment on above: Result Comment: The drugs N-Acetylcysteine and Metamizole may falsely depress this assay. Reference Range HDL <40 mg/dL Low HDL Cholesterol HDL >or= 60 mg/dL High HDL Cholesterol Performed By: #### L 501.9520, L3300.0960, L500.4100, L501.5200 #### [facility] [address] [place], [address] Cholesterol in LDL [Mass/Vol] 178 mg/dL High 0-130 [facility] Comment on above: Performed By: #### L 501.9520, L3300.0960, L500.4100, L501.5200 #### [facility] [address] [place], [address] Cholesterol in VLDL [Mass/Vol] 13 mg/dL Normal 5-40 [facility] Comment on above: Performed By: #### L 501.9520, L3300.0960, L500.4100, L501.5200 #### [facility] [address] [place], [address] Triglyceride [Mass/Vol] 64 mg/dL Normal [facility] Comment on above: Result Comment: The drugs N-Acetylcysteine and Metamizole may falsely depress this assay. Serum Triglycerides Reference Interval Normal <150 mg/dL Borderline high 150 - 199 mg/dL High 200 - 499 mg/dL Very High > or = 500 mg/dL Performed By: #### L 501.9520, L3300.0960, L500.4100, L501.5200 #### [facility] [address] [place], [address] Magnesiumon 10-04-2023 Magnesium [Mass/Vol] 2.5 mg/dL Normal 1.6-2.6 [facility] Comment on above: Performed By: #### L 501.9520, L3300.0960, L500.4100, L501.5200 #### [facility] [address] [place], [address] Neurology Visit Reporton Neurology Visit Report [facility] [address] [facility] [address] [facility], [address] [place] [address] OFFICE VISIT Date of Service: 10/04/23 MR#: [id number] Acct: [id number] Name: LEONORA BAEZ Rep #: [id number] : 1935 Provider: Dr. Regis baugh MD Age/Sex: 87/F Location: [facility]. Status: Signed with Addenda ADDENDUM by Dr. Regis Butler MD on 12/03/23 at 0936 Addendum Addendum (12/03/2023): The patient continues to experience episodes of lightheadedness despite the use of compression stockings. However she has not had further recent syncopal episodes. Her tilt table test was positive for orthostatic hypotension. 14-day cardiac event monitor (10/16/2023-): The prominent rhythm was sinus bradycardia to sinus tachycardia. The maximal heart rate recorded was 174 bpm. The minimum heart rate recorded was 52 bpm. The average heart rate was 86 bpm. There were 1067 VE beats with a burden of less than 1%. There were 555 SVE beats with a burden of less than 1%. There were 7 occurrences of supraventricular tachycardia with the longest episode 6 beats and the fastest episode 174 bpm. There were 3 patient triggers. Tilt table test (11/14/2023): Procedure Comments: Patient was brought to the noninvasive lab in the postabsorptive nonsedated state. Informed consent was obtained. Initial EKG was obtained which demonstrated sinus rhythm with a rate of 77 bpm initial blood pressure was 92/55 mmHg. The patient was then put in the 70 degree head upright tilt position. Continuous EKG monitoring was performed. The patient maintained an adequate heart rate between 83 bpm and 92 bpm. Blood pressures ranged between 95 to millimeters of mercury systolic and 109 mmHg systolic. After the requisite. The patient was then put back in the supine position and administered 0.4 mg of sublingual nitroglycerin. Patient was then put in the head upright tilt position. Initial heart rate was 97 bpm with a blood pressure of 102/62 mmHg. The heart rate then went up to 127 bpm with blood pressure dropping to 93/49 and then subsequently patient became clammy and responsive drop blood pressure to 52 mmHg with heart rate slowly declining from 101 bpm to approximately 87 bpm in sinus rhythm and then sinus bradycardia. Patient was put back in the recumbent position given IV fluids and patient recovered. Summary: Tilt table test with mixed response likely orthostatic hypotension followed by vagal component. 24-hour Holter monitor (11/14/2023): Conclusion: 24-hour Holter monitor in normal sinus rhythm with occasional PVCs/PACs. CBC (11/14/2023): Hemoglobin 11.7 (low), BUN 21 (high), BUN/creatinine ratio 25.2 (high) I will have the patient begin fludrocortisone 0.1 mg to be taken in the morning every Sunday and Sunday. I will have her return to the office in 2 weeks for an orthostatic blood pressure check. 12/03/23 0936 Date Regis Butler MD cc: Dr. Jaqueline Mitchell MD * Signed Intake Vital Signs 08/29/23 13:11 10/04/23 08:59 10/04/23 16:48 10/04/23 16:48 Height 5 ft 2 in 5 ft 2 in Weight: 110 lb BMI 20.1 BP 110/68 101/64 97/64 Blood Pressure Location Lt brachial Lt radial Lt radial Position Sitting Sitting Standing Respiration 16 Pulse 78 103 H Pulse Source Monitor Temp 98.0 F Temp Source Temporal Pulse Oximetry (%) 98 Oxygen Delivery Method room air Intake Visit Reasons: SYNCOPE AND COLLAPSE Accompanied by: Daughter Allergies No Known Allergies Allergy (Verified 10/04/23 09:01) Medications omega 5-oqi-ixi-fish oil 900 mg-1,400 mg capsule,delayed release (Fish Oil) 1 cap PO DAILY 06/06/23 [History Confirmed 10/04/23] [facility] Medical History (Updated 10/05/23 @ 16:[address] Regis Butler MD) Chest pain Polycystic kidney disease Syncope and collapse Surgical History Hx of cataract removal with insertion of prosthetic lens Hx of dilation and curettage Family History Father CVA (cerebral vascular accident) Mother Dementia Daughter Kidney disease Social History (Updated 08/29/23 @ 13:13 by Sary Benitez RN) Smoking Status: Never smoker alcohol intake: never substance use type: does not use caffeine: Yes Type: coffee Number of servings: 2 HPI HPI Details: History: The patient is an 87-year-old right-handed woman with a past medical history of polycystic kidney disease who presents for evaluation of episodes of loss of consciousness. She is accompanied by her daughter. Around January 2023, after entering her car and beginning to drive she had an episode of acute loss of consciousness that lasted several seconds. She did not have any preceding numbness, weakness, vision change, headache, (more content not included)... Normal [facility] No Panel InformationOrdered By: Regis Butler on 10-04-2023 Thyroid Stimulating Hormone (TSH) 2.00 uIU/mL 0.358-3.74 [facility] Serum or plasma calcitriol m easurement (mass/volume)Ordered By: Regis Butler on 10-04-2023 1,25-dihydroxyvitamin D3 [Mass/Vol] 37.2 pg/mL 24.8-81.5 [facility] Comment on above: Performed at: - [address] [id number] Director: Mariela Spear MD, Phone: [phone] Serum or plasma cholesterol in HDL measurement (mass/volume)Ordered By: Regis Butler on 10-04-2023 Cholesterol in HDL [Mass/Vol] 90 mg/dL >40 [facility] Comment on above: The drugs N-Acetylcy steine and Metamizole may falsely depress this assay. Reference Range HDL <40 mg/dL Low HDL Cholesterol HDL >or= 60 mg/dL High HDL Cholesterol Serum or plasma cholesterol in VLDL measurement (mass/volume)Ordered By: Regis Butler on 10-04-2023 Cholesterol in VLDL [Mass/Vol] 13 mg/dL 5-40 [facility] Serum or plasma low density lipoprotein (LDL) cholesterol measurement (mass/volume)Ordered By: Reigs Butler on 10-04-2023 Cholesterol in LDL [Mass/Vol] 178 mg/dL 0-130 [facility] Thyroid Stim Hormone (TSH)on 10-04-2023 TSH 2.00 uIU/mL Normal 0.358-3.74 [facility] Comment on above: Performed By: #### L 501.9520, L3300.0960, L500.4100, L501.5200 #### [facility] [address] [place], [address] Cardiology Visit Reporton Cardiology Visit Report [facility] [address] [place] [address] OFFICE VISIT Date of Service: 08/29/23 MR#: [id number] Acct: [id number] Name: LEONORA BAEZ Rep #: [id number] : 1935 Provider: Dr. Oral Teran MD Age/Sex: 87/F Location[place] [facility] Status: Signed [facility] History of Present Illness Details: The patient is here for follow-up visit on her syncopal episodes. According to her, since her last visit with us, she has not had any syncope or presyncope. No lightheadedness or dizziness. No palpitations. No orthopnea. No PND. Occasional ankle edema. Patient's stress Myoview was negative for ischemia. Normal LV systolic function. Mild mitral regurgitation was noted on echocardiogram. Intake Vital Signs 06/07/23 10:22 08/29/23 13:11 Height 5 ft 2 in 5 ft 2 in Weight: 112 lb BMI 20.5 BP 108/65 Blood Pressure Location Lt brachial Position Sitting Respiration 20 H Pulse 84 Pulse Source Monitor Intake Visit Reasons: 3 M FU [employer] Administrator Required: No Accompanied by: Daughter Is patient in pain?: No Allergies No Known Allergies Allergy (Verified 08/29/23 13:12) Medications omega 0-mbn-isq-fish oil 900 mg-1,400 mg capsule,delayed release (Fish Oil) 1 cap PO DAILY 06/06/23 [History Confirmed 08/29/23] Ejection fraction %: 60 to 64 PFSH Medical History Chest pain Polycystic kidney disease Syncope and collapse Surgical History Hx of cataract removal with insertion of prosthetic lens Hx of dilation and curettage Family History Father CVA (cerebral vascular accident) Mother Dementia Daughter Kidney disease Social History (Updated 08/29/23 @ 13:13 by Sary Benitez RN) Smoking Status: Never smoker alcohol intake: never substance use type: does not use caffeine: Yes Type: coffee Number of servings: 2 ROS Const Const: Negative for fatigue or weakness ENT ENT: Negative for dizziness or balance problems Cardio Chest Pain: No Palpitations: No Edema: Left Muscle aches with walking: None Resp Respiratory: Negative for SOB with activity, SOB at rest or SOB orthopnea SOB lying down GI GI: Negative nausea, vomiting or heartburn Musc Musc: Negative for muscle weakness or balance problems Neuro Neuro: Negative for dizziness, lightheadedness, near syncope, syncope or weakness Endo Endo: Negative for fatigue Cardiology Exam Const Appearance: comfortable and no acute distress Nutritional Appearance: well nourished Neck Neck: no JVD Carotids: Negative bruit Chest Auscultation: Bilateral: Clear to Auscultation Cardio Rate: regular rate Rhythm: regular rhythm Heart sounds: S1 normal and S2 normal Neuro General: patient alert, patient awake and patient oriented x3 Extremities Lower Extremity Edema: None: Bilateral Supplemental Info Supplemental Information Echocardiogram 06/14/2023: Interpretation Summary The estimated ejection fraction is 60 %. Moderate mitral annular calcification extending onto the anterior leaflet. Mild (1+) mitral valve insufficiency. Trivial tricuspid valve insufficiency. STRESS TEST 06/25/23: Perfusion SPECT analysis: Review of the stress images demonstrate normal uptake of tracer noted in all areas of the myocardium. The resting images similarly demonstrate normal uptake of tracer noted in all areas of the myocardium. No areas of reversibility are noted to suggest ischemia no previous infarct was noted. Gated SPECT analysis: The gated ejection fraction is 86%. Conclusion: Normal exercise myocardial perfusion stress test at a low workload Preserved ejection fraction. The low workload may affect sensitivity for detection of ischemia. Carotid duplex 06/14/2023: Interpretation Summary Normal right extracranial internal carotid. Normal left extracranial internal carotid. Patent and antegrade vertebrals bilaterally. Assessment and Plan Assessment and Plan (1) Syncope and collapse: Status: Chronic Comment: ECG done in the office today shows normal sinus rhythm. No ischemic changes noted. No heart blocks. Plan: No further syncopal episodes. Normal LV systolic function. No ischemia on stress Myoview. Discussed with patient about possibility of loop recorder. It was decided with mutual agreement that if she has any further syncopal episodes or presyncope, then she will let us know for referral for loop recorder implant. (2) Mitral regurgitation: Status: Chronic Plan: Mild mitral valve regurgitation noted on echocardiogram. Periodic clinical and echo surveillance. Plan Details Follow Up: 6 Months Coding Level of Care Code Off vis,est,l (more content not included)... Normal [facility] Basophil percentageOrdered B y: Oral Teran on 06-07-2023 Bilirubin [Mass/Vol] 0.40 mg/dL 0.20-1.00 [facility] Comment on above: For patients on eltr ombopag therapy, use of Dimension [place] TBIL is not recommended. Chloride [Moles/Vol] 106 mmol/L 98-107 [facility] Glucose [Mass/Vol] 90 mg/dL 74-106 [facility] Potassium [Moles/Vol] 3.8 mmol/L 3.5-5.1 [facility] Protein [Mass/Vol] 7.2 g/dL 6.4-8.2 [facility] Sodium [Moles/Vol] 137 mmol/L 136-145 [facility] WBC (Bld) [#/Vol] 5.3 10*3/uL 4.4-11.0 [facility] Blood erythrocytes count (nu mber/volume)Ordered By: Oral Teran on 06-07-2023 RBC (Bld) [#/Vol] 3.79 10*6/uL 4.2-5.4 [facility] Blood hemoglobin measurement (mass/volume)Ordered By: Oral Teran on 06-07-2023 Hemoglobin (Bld) [Mass/Vol] 12.3 g/dL 12.0-15.0 [facility] Blood platelet mean volumeOr dered By: Oral Teran on 06-07-2023 Platelet mean volume (Bld) [Entitic vol] 11.9 fL 6.2-12.0 [facility] Determination of erythrocyte mean corpuscular volume (MCV)Ordered By: Oral Teran on 06-07-2023 MCV (RBC) [Entitic vol] 102.4 fL 81-99 [facility] Hematocrit Auto (Bld) [Volum e fraction]Ordered By: Oral Teran on 06-07-2023 Hematocrit (Bld) [Volume fraction] 38.8 % 37-47 [facility] - Chemistry and C hemistry - challengeOrdered By: Oral Teran on 06-07-2023 ALP [Catalytic activity/Vol] 58 U/L 45-117 [facility] ALT [Catalytic activity/Vol] 19 U/L 13-56 [facility] CO2 [Moles/Vol] 25.0 mmol/L 21.0-32.0 [facility] Globulin (S) [Mass/Vol] 3.5 g/dL 2.2-4.2 [facility] Urea nitrogen/Creatinine [Mass ratio] 19.1 mg/mg 10-20 [facility] - Hematology and Cell countsOrdered By: Oral Teran on 06-07-2023 Erythrocyte distribution width (RBC) [Entitic vol] 49.1 fL 35.1-43.9 [facility] Erythrocyte distribution width (RBC) [Ratio] 12.9 % 11.6-14.6 [facility] MCH (RBC) [Entitic mass] 32.5 pg 27.0-32.0 [facility] MCHC Auto (RBC) [Mass/Vol]Or dered By: Oral Teran on 06-07-2023 MCHC (RBC) [Mass/Vol] 31.7 g/dL 32-36 [facility] No Panel InformationOrdered By: Oral Teran on 07-13-2023 Estimated GFR (MDRD) Amer 83 mL/min >60 [facility] Comment on above: GFR Calc Estimated GFR (MDRD) Non-Af Amer 69 mL/min >60 [facility] Comment on above: Non- GFR Calc Platelets bldOrdered By: Marcia Teran on 06-07-2023 Platelets (Bld) [#/Vol] 163 10*3/uL 150-450 [facility] Serum or plasma albumin delma urement (mass/volume)Ordered By: Oral Teran on 06-07-2023 Albumin [Mass/Vol] 3.7 g/dL 3.2-5.0 [facility] Serum or plasma albumin/glob ulin mass ratioOrdered By: Oral Teran on 06-07-2023 Albumin/Globulin [Mass ratio] 1.1 {ratio} 0.9-2.4 [facility] Serum or plasma calcium delma urement (mass/volume)Ordered By: Oral Teran on 06-07-2023 Calcium [Mass/Vol] 9.5 mg/dL 8.5-10.1 [facility] Serum or plasma creatinine m easurement (mass/volume)Ordered By: Oral Teran on 06-07-2023 Creatinine [Mass/Vol] 0.84 mg/dL 0.55-1.02 [facility] Comment on above: The validity of the calculated GFR & GFRAA in patients over 70 years has not been determined. Clinical correlation is essential. Serum or plasma urea nitroge n measurement (mass/volume)Ordered By: Oral Teran on 06-07-2023 Urea nitrogen [Mass/Vol] 16 mg/dL 7-18 [facility] Thin prep Papanicolaou smear with manual screeningOrdered By: Oral Teran on 06-07-2023 Thin prep Papanicolaou smear with manual screening 29 U/L 15-37 [facility] Thin prep Papanicolaou smear with manual screening 6 5-15 [facility] Vital Signs Date Time Vital Sign Value Performing Clinician Luz vargas 05-07-2025 08:15-0400 Body height 157.[address] Jaqueline Mitchell MD Work Phone: [facility] 05-07-2025 08:15-0400 Body mass index (BMI) [Ratio] 20.6 kg/m2 Dr. Jaqueline Mitchell MD Work Phone: [facility] 05-07-2025 08:15-0400 Body temperature 98.2 [degF] Dr. Jaqueline Mitchell MD Work Phone: 9(249)565-517611 [address] 05-07-2025 08:15-0400 Body weight 51.[address] Jaqueline Mitchell MD Work Phone: 6(905)726-983511 [address] 05-07-2025 08:15-0400 Diastolic blood pressure 60 mm[Hg] Dr. Jaqueline Mitcehll MD Work Phone: 0(756)966-437554 [place] [address] 05-07-2025 08:15-0400 Heart rate 56 /min Dr. Jaqueline Mitchell MD Work Phone: 1(240)152-700611 [address] 05-07-2025 08:15-0400 Respiratory rate 15 /min Dr. Jaqueline Mitchell MD Work Phone: 1(201)715-945311 [address] 05-07-2025 08:15-0400 SaO2% (BldA) [Mass fraction] 98 % Dr. Jaqueline Mitchell MD Work Phone: 3(915)344-201111 [address] 05-07-2025 08:15-0400 Systolic blood pressure 106 mm[Hg] Dr. Jaqueline Mitchell MD Work Phone: 4(901)967-788211 [address] 10-04-2023 16:48-0500 Diastolic blood pressure 64 mm[Hg] Dr. Jaqueline Mitchell Work Phone: 7(443)[phone] [place] [address] 10-04-2023 16:48-0500 Heart rate 103 /min Dr. Jaqueline Mitchell Work Phone: 9(237)[phone] [place] [address] 10-04-2023 16:48-0500 Systolic blood pressure 97 mm[Hg] Dr. Jaqueline Mitchell Work Phone: [facility] 10-04-2023 08:59-0500 Body height 157.[address] Jaqueline Mitchell Work Phone: [facility] 10-04-2023 08:59-0500 Body mass index (BMI) [Ratio] 20.1 kg/m2 Dr. Jaqueline Mitchell Work Phone: [facility] 10-04-2023 08:59-0500 Body temperature 98 [degF] Dr. Jaqueline Mitchell Work Phone: [facility] 10-04-2023 08:59-0500 Body weight 49.[address] Jaqueline Mitchell Work Phone: [facility] 10-04-2023 08:59-0500 Respiratory rate 16 /min Dr. Jaqueline Mitchell Work Phone: [facility] 10-04-2023 08:59-0500 SaO2% (BldA) [Mass fraction] 98 % Dr. Jaqueline Mitchell Work Phone: [facility] 08-29-2023 13:11-0400 Body mass index (BMI) [Ratio] 20.5 kg/m2 Dr. Jaqueline Mitchell Work Phone: [facility] 08-29-2023 13:11-0400 Body weight 50.[address] Jaqueline Mitchell Work Phone: [facility] 08-29-2023 13:11-0400 Diastolic blood pressure 65 mm[Hg] Dr. Jaqueline Mitchell Work Phone: [facility] 08-29-2023 13:11-0400 Heart rate 84 /min Dr. Jaqueline Mitchell Work Phone: [facility] 08-29-2023 13:11-0400 Respiratory rate 20 /min Dr. Jaqueline Mitchell Work Phone: [facility] 08-29-2023 13:11-0400 Systolic blood pressure 108 mm[Hg] Dr. Jaqueline Mitchell Work Phone: [facility] 06-07-2023 10:22-0400 Body height 157.[address] Jaqueline Mitchell Work Phone: [facility] 06-07-2023 10:22-0400 Body mass index (BMI) [Ratio] 20.5 kg/m2 Dr. Jaqueline Mitchell Work Phone: [facility] 06-07-2023 10:22-0400 Body weight 50.[address] Jaqueline Mitchell Work Phone: [facility] 06-07-2023 10:22-0400 Diastolic blood pressure 65 mm[Hg] Dr. Jaqueline Mitchell Work Phone: [facility] 06-07-2023 10:22-0400 Heart rate 73 /min Dr. Jaqueline Mitchell Work Phone: [facility] 06-07-2023 10:22-0400 Respiratory rate 16 /min Dr. Jaqueline Mitchell Work Phone: [facility] 06-07-2023 10:22-0400 Systolic blood pressure 106 mm[Hg] Dr. Jaqueline Mitchell Work Phone: [facility] Encounters Encounter Date Encounter Type Care Provider Facility Start: 05-07-2025 End: 05-07-[address] Jaqueline Mitchell MD Work Phone: [facility] Work Phone: Start: 05-07-2025 End: 05-07-[address] Regis Butler MD -[facility] Work Phone: Start: 08-07-2024 End: 08-07-2024 ambulatory [facility] Start: 07-29-2024 End: 07-29-2024 ambulatory [facility] Facility:[facility] Start: 04-11-2024 ambulatory Jaqueline Mitchell Facility: [facility] Start: 02-04-2024 End: 02-04-2024 [facility] Start: 01-08-2024 End: 01-08-2024 [facility] Start: 12-18-2023 End: 12-18-2023 ambulatory [facility] Start: 11-14-2023 [facility] Start: 11-14-2023 Non-patient / Non-visit Dr. Gary Mitchell Work Phone: [facility] Start: 11-14-2023 End: 11-14-[address] Jaqueline Mitchell Work Phone: [facility] Work Phone: Start: 11-14-2023 End: 11-14-[address] Jaqueline Mitchell Work Phone: [facility]Cardi[facility] Work Phone: Start: 11-14-2023 End: 11-14-[address] [facility] Facility:[facility] Start: 10-16-2023 End: 10-16-[address] Jaqueline Mitchell Work Phone: [facility]/Neurology Work Phone: Start: 10-16-2023 End: 10-16-[address] Jaqueline Mitchell Work Phone: [facility] Work Phone: Start: 10-16-2023 ambulatory [facility] y:[facility] Start: 10-16-[address] Jaqueline castro Work Phone: [facility] Work Phone: Start: 10-16-2023 End: 10-16-2023 ambulatory [facility] Facility:[facility] Start: 10-04-2023 End: 10-04-[address] Jaqueline Mitchell Work Phone: [facility] Work Phone: Start: 10-04-2023 End: 10-04-[address] Jaqueline Mitchell Work Phone: [facility] Work Phone: Start: 10-04-2023 End: 10-04-2023 ambulatory [facility] Start: 10-04-2023 End: 10-04-2023 ambulatory [facility] Facility:[facility] Start: 08-29-2023 End: 08-29-[address] Jaqueline Mitchell Work Phone: [facility] Work Phone: Start: 08-29-2023 End: 08-29-2023 [facility] Start: 06-28-2023 End: 06-28-[address] Jaqueline Mitchell Work Phone: [facility] Work Phone: Start: 06-28-2023 End: 06-28-[address] Jaqueline Mitchell Work Phone: [facility] Work Phone: Start: 06-25-2023 Non-patient / Non-visit Dr. Gary Mitchell Work Phone: [facility] Start: 06-21-2023 End: 06-21-[address] Jaqueline Mitchell Work Phone: [facility] Work Phone: Start: 06-21-2023 End: 06-21-[address] [facility]qu[facility] Mitchell [facility] Start: 06-14-2023 Non-patient / Non-visit Dr. Gary Mitchell Work Phone: [facility] Work Phone: Start: 06-14-2023 Non-patient / Non-visit Dr. Gary Mitchell Work Phone: [facility] Start: 06-14-2023 Non-patient / Non-visit [facility] Start: 06-14-2023 End: 06-14-[address] Jaqueline Mitchell Work Phone: [facility] Work Phone: Start: 06-07-2023 End: 06-07-[address] Jaqueline Mitchell Work Phone: [facility]-Laboratory Work Phone: Start: 06-07-2023 End: 06-07-[address] Jaqueline Mitchell Work Phone: [facility] Work Phone: Procedures Date Procedure Procedure Detail Performing Clinician Start: 06-28-2023 CT of head without contrast Dr. Jaqueline Mitchell Work Phone: Start: 06-21-2023 Radionuclide imaging of perfusion of myocardium under exercise stress Dr. Jaqueline Mitchell Work Phone: Plan of Treatment Date Care Activity Detail Author Start: 10-16-2023 [facility] Cardiac event recording [facility] Complete blood count [facility] Comprehensive metabo lic 2000 panel - Serum or Plasma [facility] CT Unspecified body region WO contrast [facility] Lipid 1996 panel - S ryanne or Plasma [facility] Thyroid stimulating hormone measurement [facility] Tilt table test [facility] Payers Date Payer Category Payer Self-pay 2013 Medicare [id number] Unknown [id number] 2.16.8 [id number] Unknown [id number] 2.16.8 [id number] Unknown [id number] 2.16.8 [id number] Unknown [id number] 2.16.8 [id number] Unknown [id number] 2.16.8 [id number] Unknown [id number] 2.16.8 [id number] Unknown [id number] 2.16.8 [id number] Unknown [id number] 2.16.8 [id number] Unknown [id number] 2.16.8 [id number] Unknown [id number] 2.16.8 [id number] Unknown [id number] 2.16.8 [id number] Unknown [id number] 2.16.8 [id number] Unknown [id number] 2.16.8 [id number] Unknown [id number] 2.16.8 [id number] Social History Date Type Detail Facility Start: 06-07-2023 End: 10-04-2023 Tobacco smoking status CTIS Unknown if ever smoked [facility] Start: 1935 Sex Assigned At Female [facility] Start: 02-04-2024 Tobacco smoking stat us CTIS Never smoked tobacco (finding) [facility] Procedure note 11-14-2023 Note Date & Type Note Facility 11-14-2023 Procedure note [facility] Evaluation note Note Date & Type Note Facility Evaluation note Diagnosis Onset Date Syncope and collapse chronic [facility] Work Phone: Evaluation note Note Date & Type Note Facility Evaluation note Diagnosis Onset Date Mitral regurgitation chronic Syncope and collapse chronic Postural orthostatic tachycardia syndrome acute Vitamin D insufficiency acut e Syncope and collapse chronic [facility] Work Phone: Evaluation note Note Date & Type Note Facility Evaluation note Diagnosis Onset Date Resolution Hyperlipidemia acute May 07, 2025 8:16am Postural orthostatic tachycardia syndrome acute May 07, 2025 8:16am Orthostatic hypotension chronic J 2024 8:16am Syncope and collapse resolved May 07, 2025 8:16am [facility] Work Phone: Reason for referral (narrative) Note Date & Type Note Facility Reason for referral (narrative) No reason for referral information available [facility] Work Phone: Chief Complaint and Reason for Visit Chief Complaint SYNCOPE (JOLLIFF) CHEST PAIN SYNCOPE Amb Documentation syncope, chest pain syncope, chest pain Reason for Visit Syncope and collapse Chief Complaint SYNCOPE (JOLLIFF) CHEST PAIN SYNCOPE Amb Documentation syncope, chest pain syncope, chest pain CHEST PAIN SYNCOPE Reason for Visit Syncope and collapse Chief Complaint syncope, chest pain CHEST PAIN SYNCOPE 3 M FU SYNCOPE AND COLLAPSE EORDER SYNCOPE AND COLLAPSE Reason for Visit Mitral regurgitation Syncope and collapse Postural orthostatic tachycardia syndrome Vitamin D insufficiency Syncope and collapse Chief Complaint 3 M FU SYNCOPE AND COLLAPSE EORDER R00.0 - Tachycardia, unspecified SYNCOPE AND COLLAPSE SYNCOPE AND COLLAPSE SYNCOPE AND COLLAPSE Reason for Visit Mitral regurgitation Syncope and collapse Postural orthostatic tachycardia syndrome Vitamin D insufficiency Syncope and collapse Chief Complaint Admit Date 9mo fu May 07, 2025 8:16 am Reason for Visit Admit Date Hyperlipidemia May 07, 2025 8:16 am Postural orthostatic tachycardia syndrom e May 07, 2025 8:16am Orthostatic hypotension May 07, 2025 8:16am Syncope and collapse May 07, 2025 8:1 6am Family History Relationship Condition Age at Onset Recorded Date/T seema father Cerebrovascular accident (CVA) Unknown mother Dementia Unknown daughter Kidney disorder Unknown Advance Directives Advance Directive Response Recorded Date/ Time Living Will k December 13 9:48am Power of Hearing Aid Repairer [facility] December 13, 2014 9:48am Advance Directive Response Recorded Date/ Time Living Will unk December 13 8:48am Power of Hearing Aid Repairer [facility] December 13, 2014 8:48am Advance Directive Response Recorded Date/ Time Living Will k December 13 9:48am Do you have a Healthcare Power of Hearing Aid Repairer? k December 13, 2014 9:48am Summary Purpose Additional Source Comments Care Teams (unrecognized sec tion and content) Team Status: Active Member Role Status Dates Dr. Jaqueline Mitchell MD Family Provider Active Dr. Jaqueline Mitchell MD Primary Care Provider Active Team Status: Inactive Member Role Status Dates Dr. Jaqueline Mitchell MD Primary Care Provider, Referrin g Provider Active Dr. Oral Teran MD Attending Provider Active Team Status: Active Member Role Status Dates Dr. Jaqueline Mitchell MD Primary Care Provider Active Dr. Juan C Betts MD Attending Provider Active Team Status: Active Member Role Status Dates Dr. Jaqueline Mitchell MD Primary Care Provider Active Dr. Oral Teran MD Attending Provider, Referring Pr ovider Active Team Status: Active Member Role Status Dates Dr. Jaqueline Mitchell MD Primary Care Provider Active Marycarmen Hurley PRINCIPAL LIBRARIAN, PRINCIPAL LIBRARIAN-C Attending Provider Active Team Status: Active Member Role Status Dates Dr. Jaqueline Mitchell MD Primary Care Provider Active Dr. Oral Teran MD Referring Provider, Other Provid er Active Dr. Julio C Driver MD Attending Provider Active Team Status: Inactive Member Role Status Dates Dr. Jaqueline Mitchell MD Primary Care Provider Active Dr. Oral Teran MD Attending Provider, Referring Pr ovider Active Team Status: Inactive Member Role Status Dates Dr. Jaqueline Mitchell MD Primary Care Provider, Referrin g Provider Active Dr. Regis Butler MD Attending Provider Active Team Status: Inactive Member Role Status Dates Dr. Jaqueline Mitchell MD Primary Care Provider Active Dr. Regis Butler MD Attending Provider, Referring Provider Active Team Status: Active Member Role Status Dates Dr. Jaqueline Mitchell MD Primary Care Provider Active Dr. Julio C Driver MD Attending Provider, Other Provide r Active Dr. Oral Teran MD Other Provider Active Team Status: Active Member Role Status Dates Dr. Jaqueline Mitchell MD Primary Care Provider Active Dr. Regis Butler MD Attending Provider, Referring Provider Active Team Status: Inactive Member Role Status Dates Dr. Jaqueline Mitchell MD Primary Care Provider Active Dr. Julio C Driver MD Attending Provider Active Dr. Oral Teran MD Other Provider Active Team Status: Inactive Member Role Status Dates Dr. Jaqueline Mitchell MD Primary Care Provider Active Start: May 07, 2025 End: May 07, 2025 Dr. Jaqueline Mitchell MD Referring Provider Active Start: May 07, 2025 End: May 07, 2025 Dr. Regis Butler MD Attending Provider Active Start: May 07, 2025 End: May 07, 2025 Goals (unrecognized section and content) Goals may be documented in a n alternate sectionGoals may be documented in an alternate sectionGoals may be documented in an alternate sectionGoals may be documented in an alternate sectionGoals may be documented in an alternate section INFORMATION SOURCE (unrecogn ized section and content) DATE CREATED AUTHOR 08/20/2024 [facility] FOR RECORDS PERTAINING TO PATIENTS WHO ARE OR HAVE BEEN ENROLLED IN A CHEMICAL DEPENDENCY/SUBSTANCEABUSE PROGRAM, SOME INFORMATION MAY BE OMITTED. This clinical summary was aggregated from multiple sources. Caution should be exercised in using it in the provision of clinical care. This summary normalizes information from multiple sources, and as a consequence, information in this document may materially change the coding, format and clinical context of patient data. In addition, data may be omitted in some cases. CLINICAL DECISIONS SHOULD BE BASED ON THE PRIMARY CLINICAL RECORDS. [facility] [facility]. provides no warranty or guarantee of the accuracy or completeness of information in this document.
== END | disposition home or self-care (01) ==
LOC: MTLAB 08:59
PROVIDERS: PCP Family Medicine; Referring Provider Psychiatry & Neurology Neurology; Visit Provider Psychiatry & Neurology Neurology
DX: R55 Syncope and collapse (principal); G90.A Postural orthostatic tachycardia syndrome [POTS]; E78.5 Hyperlipidemia, unspecified
CPT/HCPCS: 36415; 80053; 80061; 84443; 85027

== ENCOUNTER → 2025-06-11 | Outpatient (CLI) | payer MEDICARE, SELFPAY ==
--- NOTE | 2025-06-11 09:19 | BD_ITS ---
PROCEDURE: DEXA BONE DENSITY STUDY 06/11/2025 REASON FOR EXAM: F, age 89 y/o . Postmenopausal. TECHNIQUE: DEXA BONE DENSITY STUDY COMPARISON: None FINDINGS: BMD and T-SCORES Lumbar spine: 1.087 g/cm2, T-score 0.5 Levels: L1 through L4 Left femoral neck: 0.588 g/cm2, T-score -2.4 Femoral neck comparison data not recommended for monitoring change. Left total hip: 0.702 g/cm2, T-score -2.0 Right femoral neck: 0.557 g/cm2, T-score -2.6 Femoral neck comparison data not recommended for monitoring change. Right total hip: 0.677 g/cm2, T-score -2.2 . The World Health Organization has defined the following categories based on bone density: Normal bone density: T-score equal to or greater than -1.0 Osteopenia: T-score between -1.0 and -2.5 Osteoporosis: T-score equal to or less than -2.5 The patient does meet the pharmacological treatment recommendations for prevention of osteoporosis. BD/Dexa Bone Density Study IMPRESSION: OSTEOPOROSIS. Recommend follow-up as clinically warranted. Reading Location: [place] [id number]
== END | disposition home or self-care (01) ==
LOC: OPBD 09:17
PROVIDERS: PCP Family Medicine; Referring Provider Family Medicine; Visit Provider Family Medicine
DX: Z78.0 Asymptomatic menopausal state (principal)
CPT/HCPCS: 77080